=== PATIENT | male | born 1955 | race Caucasian/White ===

== ENCOUNTER 2024-09-18 14:30 | Outpatient (CLI) | payer MEDICARE | END 2024-09-18 23:59 | disposition home or self-care (01) | LOC: RAD 14:30 | PROVIDERS: ATTEND Podiatrist Foot & Ankle Surgery | DX: M81.0 Age-related osteoporosis without current pathological fracture (principal); M21.40 Flat foot [pes planus] (acquired), unspecified foot; M24.573 Contracture, unspecified ankle; M79.671 Pain in right foot; Z98.890 Other specified postprocedural states | CPT/HCPCS: 73700 ==